=== PATIENT | female | born 1965 | race Caucasian/White ===

== ENCOUNTER 2019-08-06 12:35 | Outpatient (REF) | payer BC, SELFPAY ==
[2019-08-06 22:39] LABS: Calculated LDL 179 mg/dL; Cholesterol 264 mg/dL (<200); HDL Cholesterol 74 mg/dL (40-60); Triglyceride 58 mg/dL (<150)
[2019-08-06 22:53] LABS: Hemoglobin A1C 5.9 % (3.8-5.6)
[2019-08-08 08:34] LABS: Glucose 91 mg/dL (74-106)
== END 2019-08-06 12:55 ==
LOC: NCHCN 12:35
PROVIDERS: PCP Family Medicine; Visit Provider Nurse Practitioner Family
DX: Z00.00 Encounter for general adult medical examination without abnormal findings (principal); Z13.1 Encounter for screening for diabetes mellitus; Z13.220 Encounter for screening for lipoid disorders
CPT/HCPCS: 80061; 82947; 83036

== ENCOUNTER 2020-02-08 09:46 | Outpatient (REF) | payer BC, SELFPAY ==
[2020-02-08 21:40] LABS: Hemoglobin A1C 5.8 % (3.8-5.6)
[2020-02-08 21:42] LABS: ALT 24 U/L (14-59); AST 23 U/L (15-37); Albumin 4.2 g/dL (3.4-5.0); Alkaline Phosphatase 49 U/L (46-116); Anion Gap 5.9 mmol/L (3-11); BUN 13 mg/dL (7-18); Bilirubin, Total 0.6 mg/dL (0.2-1.0); CO2 30.1 mmol/L (21.0-32.0); CREATININE 0.69 mg/dL (0.55-1.02); Calculated LDL 128 mg/dL (<100); Chloride 104 mmol/L (98-107); Cholesterol 217 mg/dL (<200); Glucose 96 mg/dL (74-106); HDL Cholesterol 74 mg/dL (40-60); Potassium 4.2 mmol/L (3.5-5.1); Sodium 140 mmol/L (136-145); Total Protein 6.9 g/dL (6.4-8.2); Triglyceride 75 mg/dL (<150)
== END 2020-02-08 10:06 ==
LOC: NCHCN 09:46
PROVIDERS: PCP Family Medicine; Visit Provider Nurse Practitioner Family
DX: Z00.8 Encounter for other general examination (principal); R73.03 Prediabetes
CPT/HCPCS: 80053; 80061; 83036

== ENCOUNTER 2021-02-26 12:28 | Outpatient (REF) | payer BC, SELFPAY ==
[2021-02-27 11:52] LABS: COVID-19 RT-PCR UVMMC Result Negative (Negative)
== END 2021-02-26 12:29 | disposition home or self-care (01) ==
LOC: NCHCN 12:28
PROVIDERS: PCP Family Medicine; Visit Provider Nurse Practitioner Family
DX: Z20.822 Contact with and (suspected) exposure to COVID-19 (principal)
CPT/HCPCS: U0003

== ENCOUNTER 2021-08-24 15:52 | Outpatient (REF) | payer BC, SELFPAY ==
[2021-08-24 15:32] LABS: HCT 38.1 % (36.0-46.0); HGB 12.1 g/dL (11.2-15.7); MCH 26.9 pg (27.0-33.0); MCHC 31.8 % (32.0-36.0); MCV 84.7 fL (80-95); MPV 10.2 fL (8.0-11.0); Platelet Count 217 10^3/uL (130-400); RDW 12.9 % (11.7-14.6); WBC 3.85 10^3/uL (4.4-10.8)
[2021-08-24 16:12] LABS: Hemoglobin A1C 5.7 % (<5.7)
[2021-08-24 16:45] LABS: Anion Gap 7.2 mmol/L (3-11); BUN 19 mg/dL (7-18); CO2 30.8 mmol/L (21.0-32.0); CREATININE 0.7 mg/dL (0.55-1.02); Calcium 8.9 mg/dL (8.5-10.1); Calculated LDL 137 mg/dL (<100); Chloride 104 mmol/L (98-107); Cholesterol 227 mg/dL (<200); Glucose 85 mg/dL (74-106); HDL Cholesterol 83 mg/dL (40-60); Potassium 3.6 mmol/L (3.5-5.1); Sodium 142 mmol/L (136-145); Triglyceride 37 mg/dL (<150)
== END 2021-08-24 15:53 | disposition home or self-care (01) ==
LOC: NCHCN 15:52
PROVIDERS: PCP Family Medicine; Visit Provider Nurse Practitioner Family
DX: Z00.00 Encounter for general adult medical examination without abnormal findings (principal); R73.03 Prediabetes; E78.5 Hyperlipidemia, unspecified
CPT/HCPCS: 80048; 80061; 85027; 83036

== ENCOUNTER 2021-08-31 13:36 | Outpatient (REF) | payer BC, SELFPAY ==
--- NOTE | 2021-08-31 11:00 | PAPFT_PTH ---
PATIENT: Shaista Haynes LOC: [facility]#:[id number] AGE/SX: 56/F ROOM: RE08/31/[address]: Reanna Castellanos : 1965 BED: DIS: 08/31/2021 SPEC #: [id number] RECD: 09/01/21 12:59 STATUS: CORINA BOOTH #: [id number] RACHEL: 08/31/21 11:[address]: Reanna Florian DEPT: [facility] Cytology RECD BY: Love Villarreal ENTERED: 09/01/21 13:00 SP TYPE: PAPFT OTHR DR: Caitlin Gonzalez Tissues: 1 - CX/ENDOCX FOR PAP SMEARS Procedures: PAP THIN PREP/[facility] Screening HPV DNA PROBE Comments: [id number]
== END 2021-08-31 13:37 | disposition home or self-care (01) ==
LOC: NCHCN 13:36
PROVIDERS: PCP Family Medicine; Visit Provider Nurse Practitioner Family
DX: Z12.4 Encounter for screening for malignant neoplasm of cervix (principal); Z11.51 Encounter for screening for human papillomavirus (HPV)
CPT/HCPCS: 88142; 87624

== ENCOUNTER 2021-10-08 19:11 | Outpatient (REF) | payer BC, SELFPAY ==
[2021-10-08 21:39] LABS: Abs Immature Grans 0.02 10^3/uL (0.0-0.06); Absolute Basophil Count 0.05 10^3/uL (0.0-0.2); Absolute Eosinophil Count 0.07 10^3/uL (0.0-0.7); Absolute Lymphocyte Count 2.29 10^3/uL (1.2-3.4); Absolute Monocyte Count 0.55 10^3/uL (0.1-0.8); Basophils % 0.9; Eosinophils % 1.2; HCT 38.4 % (36.0-46.0); HGB 12.6 g/dL (11.2-15.7); Immature Grans % 0.3; Lymphocytes % 39.6; MCH 27.7 pg (27.0-33.0); MCHC 32.8 % (32.0-36.0); MCV 84.4 fL (80-95); MPV 10.2 fL (8.0-11.0); Monocytes % 9.5; Neutrophils % 48.5; Nucleated RBC 0 %; Platelet Count 316 10^3/uL (130-400); RBC 4.55 10^6/uL (3.93-5.22); RDW 12.2 % (11.7-14.6); RDW-SD 37.2 fL; WBC 5.78 10^3/uL (4.4-10.8)
== END 2021-10-08 19:12 | disposition home or self-care (01) ==
LOC: NCHCN 19:11
PROVIDERS: PCP Family Medicine; Visit Provider Nurse Practitioner Family
DX: D72.819 Decreased white blood cell count, unspecified (principal)
CPT/HCPCS: 85025

== ENCOUNTER 2022-10-04 19:33 | Outpatient (REF) | payer BC, SELFPAY ==
[2022-10-04 22:11] LABS: Calculated LDL 128 mg/dL (<100); Cholesterol 231 mg/dL (<200); HDL Cholesterol 98 mg/dL (40-60); Triglyceride 28 mg/dL (<150)
[2022-10-06 10:15] LABS: Hepatitis C Ab w Rflx HCV PCR Negative (Negative)
[2022-10-06 11:03] LABS: HIV-1/2 Ag & Ab Screen Negative (Negative)
== END 2022-10-04 19:34 | disposition home or self-care (01) ==
LOC: LBN 19:33
PROVIDERS: PCP Family Medicine; Visit Provider Nurse Practitioner Family
DX: Z00.00 Encounter for general adult medical examination without abnormal findings (principal); R73.03 Prediabetes; R07.89 Other chest pain; E78.5 Hyperlipidemia, unspecified; F41.8 Other specified anxiety disorders; Z11.4 Encounter for screening for human immunodeficiency virus [HIV]; Z11.59 Encounter for screening for other viral diseases
CPT/HCPCS: 80061; 86803; 87389

== ENCOUNTER 2023-01-10 14:40 | Outpatient (REF) | payer BC, SELFPAY ==
[2023-01-10 22:27] LABS: TSH 1.85 uIU/mL (0.36-3.74); Vitamin B12 467 pg/mL (193-986)
== END 2023-01-10 14:41 | disposition home or self-care (01) ==
LOC: NCHCN 14:40
PROVIDERS: PCP Family Medicine; Visit Provider Nurse Practitioner Family
DX: F41.9 Anxiety disorder, unspecified (principal); F32.0 Major depressive disorder, single episode, mild
CPT/HCPCS: 82607; 84443

== ENCOUNTER 2023-09-22 14:52 | Outpatient (REF) | payer BC, SELFPAY ==
[2023-09-22 14:16] LABS: HCT 36.5 % (36.0-46.0); HGB 12.2 g/dL (11.2-15.7); MCH 28.1 pg (27.0-33.0); MCHC 33.4 % (32.0-36.0); MCV 84 fL (80-95); MPV 9.8 fL (8.0-11.0); Platelet Count 248 10^3/uL (130-400); RBC 4.34 10^6/uL (3.93-5.22); RDW 13.2 % (11.7-14.6); RDW-SD 40.6 fL; WBC 3.97 10^3/uL (4.4-10.8)
[2023-09-22 14:29] LABS: ALT 26 U/L (14-59); AST 22 U/L (15-37); Albumin 3.7 g/dL (3.4-5.0); Alkaline Phosphatase 61 U/L (46-116); BUN 16 mg/dL (7-18); Bilirubin, Total 0.4 mg/dL (0.2-1.0); CREATININE 0.8 mg/dL (0.55-1.02); Calcium 8.9 mg/dL (8.5-10.1); Calculated LDL 129 mg/dL (<100); Chloride 107 mmol/L (98-107); Cholesterol 231 mg/dL (<200); Estimated GFR 85.89 (mL/min/1.73m2); Glucose 91 mg/dL (74-106); HDL Cholesterol 94 mg/dL (40-60); Potassium 3.7 mmol/L (3.5-5.1); Sodium 144 mmol/L (136-145); Total Protein 6.6 g/dL (6.4-8.2); Triglyceride 44 mg/dL (<150)
[2023-09-22 14:40] LABS: Hemoglobin A1C 5.6 % (<5.7)
[2023-09-22 14:56] LABS: Vitamin D 25 Total 30.6 ng/mL (30-100)
== END 2023-09-22 14:53 | disposition home or self-care (01) ==
LOC: NCHCN 14:52
PROVIDERS: PCP Family Medicine; Referring Provider Nurse Practitioner Family; Visit Provider Nurse Practitioner Family
DX: Z00.00 Encounter for general adult medical examination without abnormal findings (principal); R73.03 Prediabetes
CPT/HCPCS: 80053; 80061; 82306; 85027; 83036